=== PATIENT | male | born 1950 | race African-American/Black ===

== ENCOUNTER 2018-02-24 14:36 | Emergency (ER) | payer BC, MEDICARE ==
[2018-02-24 15:01] VITALS: BP 153/86
--- NOTE | 2018-02-24 15:05 | UC ---
Skin Complaint HPI - HPI Summary HPI Summary: 67 yo male presents with rash to right forearm. He tells me that 1 week ago he was doing a lot of yardwork and was in a patch of weeds that he was unfamiliar with. 2-3 days later he developed linear blisters and pain on his right forearm. Has not been applying anything OTC. Denies fever, chills, open sores, or drainage from the site. They are itchy. - History of Current Complaint Chief Complaint: UCRash Stated Complaint: RASH Hx Obtained From: Patient Onset/Duration: Sudden Onset Skin Exposure Onset/Duration: Days Ago Current Severity: None Pain Intensity: 0 Review of Systems Constitutional: Negative Skin: Other - Right forearm with rash Respiratory: Negative Cardiovascular: Negative Gastrointestinal: Negative Neurovascular: Negative Neurological: Negative Psychological: Negative All Other Systems Reviewed And Are Negative: Yes PMH/Surg Hx/FS Hx/Imm Hx - Additional Past Medical History Additional PMH: None Previously Healthy: Yes - Surgical History Surgical History: None - Family History Known Family History: Positive: None - Social History Occupation: Employed Full-time Lives: With Family Alcohol Use: Weekly Substance Use Type: None Smoking Status (MU): Never Smoked Tobacco Physical Exam - Summary Physical Exam Summary: GENERAL: NAD. WDWN. No pain distress. SKIN: Right forearm with linear blisters that are tender and moderately erythematous. No streaking, bleeding, or drainage. NECK: Supple. Nontender. No lymphadenopathy. CHEST: No accessory muscle use. Breathing comfortably and in no distress. CV: Pulses intact NEURO: Alert. CN II-XII grossly intact. PSYCH: Age appropriate behavior. Triage Information Reviewed: Yes Vital Signs: Initial Vital Signs Temp 98.4 F 02/24/18 14:56 Pulse 73 02/24/18 14:56 Resp 16 02/24/18 14:56 BP 153/86 02/24/18 14:56 Pulse Ox 98 02/24/18 14:56 Vital Signs Reviewed: Yes Course/Dx - Course Course Of Treatment: Suspect posion alda. Pt's pain is well controlled, but the itch is quite bothersome. Rx for steroid cream and advised to monitor the area and f/u prn. - Diagnoses Provider Diagnoses: Poison alda right forearm Discharge - Sign-Out/Discharge Documenting (check all that apply): Patient Departure - Discharge Plan Condition: Stable Disposition: HOME Prescriptions: Triamcinolone 0.1% CREAM (NF) [Kenalog 0.1% Cream (NF)] 1 applic TOPICAL BID #1 tube Patient Education Materials: Poison Alda (ED), Cold Compress or Soak (ED) Referrals: Melissa Zaragoza MD [Primary Care Provider] - Additional Instructions: If you develop a fever, shortness of breath, chest pain, new or worsening symptoms - please call your PCP or go to the ED. Your blood pressure was high at todays visit. Please see your primary provider within 4 weeks for recheck and re-evaluation. - Billing Disposition and Condition Condition: STABLE Disposition: Home
== END 2018-02-24 15:10 | disposition home or self-care (01) ==
LOC: UCEAST 14:36
DX: L23.7 Allergic contact dermatitis due to plants, except food (principal)
CPT/HCPCS: 99212; G0463

== ENCOUNTER 2018-09-02 17:46 | Emergency (ER) | payer MEDICARE, OTHER ==
[2018-09-02 18:03] VITALS: BP 153/86
--- NOTE | 2018-09-02 19:03 | UC ---
Shoulder Pain HPI - HPI Summary HPI Summary: PATIENT SLIPPED ON A METAL STAIRCASE EARLIER TODAY AND SLID DOWN ABOUT 4 STEPS. DENIES HEAD INJURY OR LOC. NOW HAS RIGHT SHOULDER PAIN AND DECREASED RANGE OF MOTION. NO NUMBNESS OR TINGLING. - History of Current Complaint Chief Complaint: UCUpperExtremity Stated Complaint: SHOULDER INJURY Time Seen by Provider: 09/02/18 18:35 Hx Obtained From: Patient Onset/Duration: Sudden Onset, Lasting Hours, Still Present Timing: Constant Severity Initially: Moderate Severity Currently: Moderate Location Of Pain: Is Discrete @ - RIGHT SHOULDER Pain Intensity: 7 Pain Scale Used: 0-10 Numeric Character: Dull, Aching Aggravating Factor(s): Movement Alleviating Factor(s): Rest Associated Signs And Symptoms: Negative: Swelling, Redness, Numbness/Tingling - Allergies/Home Medications Allergies/Adverse Reactions: Allergies Allergy/AdvReac Type Severity Reaction Status Date / Time No Known Allergies Allergy Verified 09/02/18 17:56 Home Medications: Home Medications Ibuprofen 400 mg PO Q8HR PRN 09/02/18 [History Confirmed 09/02/18] PMH/Surg Hx/FS Hx/Imm Hx Previously Healthy: Yes - Surgical History Surgical History: Yes Surgery Procedure, Year, and Place: R foot surgery - Family History Known Family History: Positive: None - Social History Alcohol Use: Weekly Substance Use Type: None Smoking Status (MU): Never Smoked Tobacco Review of Systems All Other Systems Reviewed And Are Negative: Yes Skin: Positive: Negative Respiratory: Positive: Negative Cardiovascular: Positive: Negative Gastrointestinal: Positive: Negative Musculoskeletal: Positive: Arthralgia, Decreased ROM Physical Exam Triage Information Reviewed: Yes Appearance: Well-Appearing, No Pain Distress, Well-Nourished Vital Signs: Initial Vital Signs Temp 98.4 F 09/02/18 17:55 Pulse 73 09/02/18 17:55 Resp 18 09/02/18 17:55 BP 153/86 09/02/18 17:55 Pulse Ox 95 09/02/18 17:55 Vital Signs Reviewed: Yes Eyes: Positive: Conjunctiva Clear ENT: Positive: Hearing grossly normal Neck: Positive: Supple Respiratory: Positive: No respiratory distress, No accessory muscle use Cardiovascular: Positive: Pulses Normal Abdomen Description: Positive: Soft Musculoskeletal: Positive: No Edema, ROM Limited @ - RIGHT SHOULDER., Other: - UNABLE TO PERFORM COMPLETE SHOULER EXAM DUE TO PT DISCOMFORT Neurological: Positive: Alert Psychological: Positive: Age Appropriate Behavior Skin: Negative: Rashes Shoulder Course/Dx - Course Course Of Treatment: PATIENT WITH MINIMAL TENDERNESS TO PALPATION OVER SHOULDER. LOW SUSPICION FOR ANY FRACTURE. OFFERED PATIENT X-RAY TODAY FOR COMPLETENESS BUT HE DECLINED WHICH I THINK IS REASONABLE. SLING PROVIDED FOR COMFORT. SHOULDER EXERCISES RECOMMENDED. HE WILL SEEK REEVALUATION IF HIS SYMPTOMS DO NOT IMPROVE EXPECTED OVER THE NEXT 1-2 WEEKS. HE MAY BENEFIT FROM IMAGING AT THAT TIME. - Differential Dx/Diagnosis Provider Diagnosis: Sprain of shoulder, right Discharge - Sign-Out/Discharge Documenting (check all that apply): Patient Departure All imaging exams completed and their final reports reviewed: No Studies - Discharge Plan Condition: Stable Disposition: HOME Patient Education Materials: Shoulder Separation Exercises (GEN), Shoulder Sprain (ED) Referrals: Melissa Zaragoza MD [Primary Care Provider] - If Needed Additional Instructions: YOUR SYMPTOMS SHOULD IMPROVE SIGNIFICANTLY OVER THE NEXT 1-2 WEEKS. IF YOU DO NOT IMPROVE EXPECTED FOLLOW-UP WITH YOUR PCP. YOU MAY BENEFIT FROM IMAGING AT THAT TIME. REST. OTC IBUPROFEN OR ALEVE NEEDED FOR DISCOMFORT. SLING PROVIDED FOR COMFORT. BE SURE TO GO THROUGH SLOW RANGE OF MOTION AND STRETCHING EXERCISES DAILY YOU ARE ABLE TO PREVENT STIFFENING UP AND MAKING THE DISCOMFORT WORSE. IBUPROFEN MAX DOSE: 600MG (3 TABS) EVERY 6 HRS OR 800MG (4 TABS) EVERY 8 HRS OR NAPROXEN MAX DOSE: 440MG (2 TABS) EVERY 12 HRS TYLENOL MAX DOSE: 1000MG (2 EXTRA STRENGTH TABS) EVERY 8 HRS OR 650MG (2 REGULAR TABS) EVERY 6 HRS - Billing Disposition and Condition Condition: STABLE Disposition: Home
== END 2018-09-02 19:00 | disposition home or self-care (01) ==
LOC: UCEAST 17:46
DX: S43.401A Unspecified sprain of right shoulder joint, initial encounter (principal); W10.9XXA Fall (on) (from) unspecified stairs and steps, initial encounter; Y92.9 Unspecified place or not applicable
CPT/HCPCS: 99211; G0463

== ENCOUNTER 2018-09-09 19:10 | Emergency (ER) | payer OTHER ==
[2018-09-09 19:29] VITALS: BP 167/91
--- NOTE | 2018-09-09 20:39 | UC ---
Shoulder Pain HPI - HPI Summary HPI Summary: 67 y/o male presents to the urgent care c/o Rt shoulder pain and RT upper arm pain s/p fall about 1 week ago. Pt reports he slipped and fell on a metal stair on 09/02/2018 and was seen here at the clinic on the same day. He was Dx with shoulder sprain and immobilized with a shoulder sling. He declined X-ray images on that day. However it hasn't improved despite taking Ibuprofen PO. He has a bruise in his shoulder blade. Today he developed a severe pain in his RT upper arm. Pain today is 7/10 w/ movement and 1/10 at rest. Last dose of Ibuprofen PO was around 1500pm. Pt denies numbness or tingling sensation over the RT arm or had and can move Rt forearm and hand w/o any difficulty. Pt denies SOB, ches tpain, abdominal pain, N/V/D or dizziness. - History of Current Complaint Chief Complaint: UCUpperExtremity Stated Complaint: SHOULDER /ARM INJURY Time Seen by Provider: 09/09/18 20:30 Hx Obtained From: Patient Onset/Duration: Sudden Onset, Lasting Weeks - 1 week, Still Present, Worse Since - yesterday Timing: Constant Severity Initially: Moderate Severity Currently: Moderate Location Of Pain: Is Discrete @ - RT shoulder, Radiates To - RT upper arm Pain Intensity: 7 - w/ movement Pain Scale Used: 0-10 Numeric Character: Sharp Aggravating Factor(s): Movement, Lifting, Abduction Alleviating Factor(s): Rest, OTC Meds Associated Signs And Symptoms: Positive: Swelling, Bruising - around RT shoulder blade. Negative: Fever, Weakness, Numbness/Tingling Related History: Dominant Hand Right - Risk Factors Non-Orthopedic Risk Factor: Negative DVT Risk Factors: Negative Septic Arthritis Risk Factor: Negative - Allergies/Home Medications Allergies/Adverse Reactions: Allergies Allergy/AdvReac Type Severity Reaction Status Date / Time No Known Allergies Allergy Verified 09/09/18 19:29 Home Medications: Home Medications Aspirin 81 mg CHEW TAB* [Aspirin Low Dose TAB*] 81 mg PO DAILY 09/09/18 [ History Confirmed 09/09/18] Cholecalciferol (Vitamin D3) [D 1000] 1,000 unit PO DAILY 09/09/18 [History Confirmed 09/09/18] Multivitamin [Multivitamins] 1 cap PO DAILY 09/09/18 [History Confirmed 09/09/18 ] PMH/Surg Hx/FS Hx/Imm Hx Previously Healthy: Yes - Pt denies PMHX - Surgical History Surgical History: Yes Surgery Procedure, Year, and Place: R foot surgery - Family History Known Family History: Positive: Hypertension - Social History Occupation: Employed Full-time Lives: With Family Alcohol Use: Weekly Substance Use Type: None Smoking Status (MU): Never Smoked Tobacco Review of Systems All Other Systems Reviewed And Are Negative: Yes Constitutional: Positive: Negative Skin: Positive: Bruising - RT shoulder blade s/p fall Eyes: Positive: Negative ENT: Positive: Negative Respiratory: Positive: Negative Cardiovascular: Positive: Negative Gastrointestinal: Positive: Negative Genitourinary: Positive: Negative Motor: Positive: Negative Musculoskeletal: Positive: Decreased ROM - RT soulder, Other: - RT shoulder pain radiating to the RT upper arm Neurological: Positive: Negative Psychological: Positive: Negative Is Patient Immunocompromised?: No Physical Exam - Summary Physical Exam Summary: Vital Signs Reviewed: Yes GENERAL: Well-Appearing, No Pain Distress, Well-Nourished male w/o any apparent pain or respiratory distress Eyes: Positive: Conjunctiva Clear - PERRL,EOMI ENT: Positive: Normal ENT inspection, Hearing grossly normal, Pharyngeal erythema - mild, Nasal drainage - clear, Uvula midline Neck: Positive: Supple, Nontender, No Lymphadenopathy Respiratory: Positive: Chest non-tender, Lungs clear, Normal breath sounds, No respiratory distress Cardiovascular: Positive: RRR, No Murmur, Pulses Normal, Brisk Capillary Refill Abdomen Description: Positive: Nontender, No Organomegaly, Soft. Negative: CVA Tenderness (R), CVA Tenderness (L) Bowel Sounds: Positive: Present Musculoskeletal:RT shoulder: The RT shoulder is without obvious asymmetry or deformity when compared to the L shoulder. posterior RT shoulder w/ ecchymosis and bruising on lateral side of the scapula, tender to palpation and soft tissue swelling, no crepitus. No bony deformity or prominence of humeral head. No erythema, warmth. No Point Tenderness to palpation over the clavicle , positive tenderness over Acromioclavicular joint and humeral head with no swelling, NT to palpation of the bicipital groove . NT to palpation of the muscles of the sternocleidomastoid, pectoralis, biceps/triceps, deltoid, trapezius, . Limited ROM due to pain especially in adduction and abduction.on both passive and active, internal/external rotation, flexion/extension. "empty can and drop arm test unable to perform due to pain. No axillary tenderness or lymphadenopathy. Normal sensation over the deltoid and fingers. Distal motor and neurovascular status is intact. Neurological Exam: Normal Psychological Exam: Normal Skin Exam: Normal Triage Information Reviewed: Yes Vital Signs: Initial Vital Signs Temp 98.8 F 09/09/18 19:22 Pulse 70 09/09/18 19:22 Resp 16 09/09/18 19:22 BP 167/91 09/09/18 19:22 Pulse Ox 100 09/09/18 19:22 Shoulder Course/Dx - Course Course Of Treatment: 67 y/o male presents to the urgent care c/o Rt shoulder pain and RT upper arm pain s/p fall about 1 week ago. Pt reports he slipped and fell on a metal stair on 09/02/2018 and was seen here at the clinic on the same day. He was Dx with shoulder sprain and immobilized with a shoulder sling. He declined X-ray images on that day. However it hasn't improved despite taking Ibuprofen PO. He has a bruise in his shoulder blade. Today he developed a severe pain in his RT upper arm. Pain today is 7/10 w/ movement and 1/10 at rest. Last dose of Ibuprofen PO was around 1500pm. Pt denies numbness or tingling sensation over the RT arm or had and can move Rt forearm and hand w/o any difficulty. Pt denies SOB, ches tpain, abdominal pain, N/V/D or dizziness. Hx obtained. Pt w/ a bruise patch in the lateral side of RT scapula w/ swelling and tender to palpation. Aso Decrease ROM of Rt shoulder due to pain and point tenderness over the AC joint and Humeral head on examination. RT shoulder, Scapula and Rt humerus X-ray ordered: Impression: lateral side of tip of scapular fracture w/ soft tissue swelling observed. Final radiology resport still pending until tomorrow. Pt's symptoms discussed with Dr Cheung and she advised shoulder immobilization and f/u tomorrow with Orthopedic. Pt advised to continue wiht Ibuprofen PO to alleviate pain . Shoulder immobilized with a shoulder inmobilizer. Emily advised to f/u with Orthopedic Dr Alanis on his appt tomororow for further evalaution and treamtent.Pt's BP is elevated today advised to decrease salt in diet, monitor BP and f/u with PCP for further management. D/C instructions explained. Pt understood and agreed w/ plan of care and left clinic ambulating and hemodynamically stable. - Differential Dx/Diagnosis Differential Diagnosis/HQI/PQRI: Abrasion, Contusion, Dislocation, Fracture ( Closed), Fracture (Open), Rotator Cuff Injury, Sprain, Strain Provider Diagnosis: Fracture of scapula, right, closed, Elevated BP without diagnosis of hypertension Discharge - Sign-Out/Discharge Documenting (check all that apply): Patient Departure - D/C home All imaging exams completed and their final reports reviewed: No - Discharge Plan Condition: Stable Disposition: HOME Patient Education Materials: Scapular Fracture (ED), Low-Sodium Diet (ED) Referrals: Melissa Zaragoza MD [Primary Care Provider] - Additional Instructions: 1-Please continue taking Ibuprofen PO q6-8hrs after meals as directed to alleviate pain and swelling. 2-Please apply ice, keep your shoulder immobilized with the shoulder immobilizer. Avid strenuous exercise or heavy lifting 3- Please f/u with Orthopedic Dr Alanis on your appt Tomorrow further evaluation and treatment. 4-Your BP is elevated today. Please take your BP medications and decrease salt in your diet, monitor BP and if it continues to be elevated please f/u with your PCP for further management. If you develop chest pain, dizziness, visual disturbances, SOB, or severe BLAIR please go immediately to the ER for further management 5- Final radiology reports will be tomorrow. If any abnormality you will be notified - Billing Disposition and Condition Condition: STABLE Disposition: Home
== END 2018-09-09 22:09 | disposition home or self-care (01) ==
LOC: UCEAST 19:10
DX: S42.101A Fracture of unspecified part of scapula, right shoulder, initial encounter for closed fracture (principal); Y92.9 Unspecified place or not applicable; Z79.82 Long term (current) use of aspirin; W10.8XXA Fall (on) (from) other stairs and steps, initial encounter; R03.0 Elevated blood-pressure reading, without diagnosis of hypertension
CPT/HCPCS: 99212; G0463